=== PATIENT | male | born 1960 | race Caucasian/White ===

== ENCOUNTER 2021-01-29 11:22 | Emergency (ER) | payer OTHER ==
[~2021-01-29] VITALS: Ht 149.9 cm; Wt 60.3 kg
--- NOTE | 2021-01-29 11:37 | NUR ---
THE PATIENT IS BIBPA FOR ABD PAIN SINCE THIS AM -N/V/D. PT WAS GIVEN [facility]CO & ATIVAN PER EMS. RATES ABDOMINAL PAIN /. ABDOMEN SOFT AND NON-DISTENDED. RESPIRATION REGULAR AND UNLABORED. WILL CONTINUE TO MONITOR THE PATIENT.
--- NOTE | 2021-01-29 11:59 | NUR ---
STARTED RAC G 20, BLOOD SPECIMEN COLLECTED AND SENT TO THE LAB. THE LINE IS SALINE LOCKED.
[2021-01-29] MEDS ORDERED: IV NS 0.9% 500 ML BAG IV ONE (12:00)
[2021-01-29] MEDS ORDERED: MORPHINE SULFATE INJ 2 MG/ML DISP.SYRIN IV ONE (12:00)
[2021-01-29] MEDS ORDERED: ONDANSETRON HCL/PF 4 MG/2 ML VIAL IVP ONE (12:00)
[2021-01-29] MEDS ORDERED: ONDANSETRON HCL/PF 4 MG/2 ML VIAL ONE (12:01)
[2021-01-29] MEDS ORDERED: MORPHINE SULFATE INJ 4 MG/ML DISP.SYRIN ONE (12:02)
[2021-01-29 12:03] LABS: BASOPHILS # (AUTO) 0.1 K/uL (0.0-0.2); BASOPHILS % (AUTO) 0.6 % (0.0-2.0); EOSINOPHILS % (AUTO) 0.2 % (0.0-6.0); HEMATOCRIT 40 % (39-51); HEMOGLOBIN 13.2 g/dL (13.5-17.5); LYMPHOCYTES % (AUTO) 17.9 % (20.0-44.0); MEAN CORPUSCULAR HGB CONC 33 g/dl (31.0-36.0); MEAN CORPUSCULAR VOLUME 84 fL (80-96); MONOCYTES # (AUTO) 0.7 K/uL (0.1-1.30); MONOCYTES % (AUTO) 5.9 % (2.0-12.0); NEUTROPHILS # (AUTO) 8.3 K/uL (1.8-8.9); NEUTROPHILS % (AUTO) 75.4 % (43.0-81.0); PLATELET COUNT (AUTO) 272 K/uL (150-450); RED BLOOD CELL COUNT(AUTO) 4.75 MIL/uL (4.5-6.0)
[2021-01-29 12:09] LABS: CALCIUM, SERUM 8.8 mg/dL (8.5-10.1); CREATININE 0.5 mg/dL (0.6-1.3); POTASSIUM 3.6 mmol/L (3.5-5.1)
[2021-01-29 12:15] LABS: ALBUMIN 3.1 g/dL (3.4-5.0); BILIRUBIN,DIRECT 0.1 mg/dL (0.0-0.2); BILIRUBIN,TOTAL 0.5 mg/dL (0.2-1.0); TOTAL PROTEIN, SERUM 8.6 g/dL (6.4-8.2)
--- NOTE | 2021-01-29 13:51 | NUR ---
CALLED [facility] ETA [id number]
--- NOTE | 2021-01-29 15:39 | NUR ---
REPORT GIVEN TO FÉLIX FROM [facility]
--- NOTE | 2021-01-29 15:56 | NUR ---
[facility] ETA [phone]
[2021-01-29 17:08] VITALS: BP 131/87
--- NOTE | 2021-01-29 17:08 | NUR ---
Patient discharged to home in stable condition. Written and verbal after care instructions given. Patient verbalizes understanding of instruction.
== END 2021-01-29 17:09 ==
LOC: ER 11:31
DX: R10.33 Periumbilical pain (principal); I25.2 Old myocardial infarction; E11.9 Type 2 diabetes mellitus without complications; F32.9 Major depressive disorder, single episode, unspecified; F41.9 Anxiety disorder, unspecified; Z98.890 Other specified postprocedural states; Z95.1 Presence of aortocoronary bypass graft
CPT/HCPCS: 36415; 74176; 80048; 80076; 83690; 85025; 96374; 96375; 99284; J2270; J2405; J7040